=== PATIENT | female | born 1975 | race Caucasian/White ===

== ENCOUNTER 2016-12-31 10:00 | Inpatient (IN) | payer OTHER ==
[2017-01-03] MEDS ORDERED: OXYTOCIN IN LR 500 ML IV ONE (10:53)
[2017-01-03] MEDS ORDERED: MINERAL OIL 25 ML BOT ONE (11:00)
[2017-01-03] MEDS ORDERED: LIDOCAINE 1% (PRES FREE) 30 ML VIAL ONE (11:00)
[2017-01-03] MEDS ORDERED: IV START KIT ONE (11:00)
[2017-01-03] MEDS ORDERED: OXYTOCIN 10 UNITS/ML VIAL ONE (11:00)
[2017-01-03] MEDS ORDERED: LIDOCAINE Viscous 2% 15 ML UDCUP ONE (11:01)
[2017-01-03] MEDS ORDERED: PUMP TUBING ONE (11:01)
[2017-01-03 11:06] LABS: HEMATOCRIT 37.6 % (37.0-47.0); HEMOGLOBIN 12.9 gm/l (12.0-16.0); MEAN CELL VOLUME 88.5 fl (81.0-99.0); MEAN CORPUSCULAR HEMOGLOBIN 30.4 pg (27.0-31.0); MEAN CORPUSCULAR HGB CONC 34.3 g/dl (33.0-37.0); RED CELL DISTRIBUTION WIDTH 13.3 % (11.5-14.5)
[2017-01-03] MEDS: MISOPROSTOL 25 MCG TABLET VG SCH ×2 (11:23→23:01)
[2017-01-03 12:45] VITALS: BMI 47.1
[2017-01-03] MEDS ORDERED: LACTATED RINGERS 2,000 ML ONE (15:56)
[2017-01-03] MEDS: OXYTOCIN IN LR 500 ML IV PRN ×3 (16:02→22:50)
[2017-01-03] MEDS: LACTATED RINGERS 1,000 ML IV SCH ×2 (16:03→20:07)
[2017-01-04] MEDS: LACTATED RINGERS 1,000 ML IV SCH ×2 (01:08→01:44)
[2017-01-04] MEDS ORDERED: EPIDURAL PUMP SET ONE (01:20)
[2017-01-04] MEDS ORDERED: FENTANYL/ROPIVACAINE EPIDURAL 250 ML EP ONE (01:20)
[2017-01-04] MEDS ORDERED: EPIDURAL PROCEDURE TRAY ONE (01:29)
[2017-01-04] MEDS ORDERED: BUPIVACAINE 0.25% (PRES FREE) 30 ML VIAL ONE (01:29)
--- NOTE | 2017-01-04 02:42 | PCMDEL ---
Delivery Note - Delivery Delivery (Date): 01/04/17 Delivery (Time): 02:20 Gender: Male Presentation: Cephalic Position: OA Umbilical Cord: 3 Vessel, True Knot Delayed Cord Clamping:: < 1 min Placenta:: spontaneous and complete EBL:: 300ml Perineum:: 2nd degree tear Suture:: 2-0 chromic Anesthesia/Meds:: epidural
[2017-01-04] MEDS ORDERED: HYDROCODONE/ACETAMINOPHEN 5/325MG TABLET PO PRN (02:48)
[2017-01-04] MEDS ORDERED: BENZOCAINE/MENTHOL 60 APPLIC/BOT TP PRN (02:48)
[2017-01-04] MEDS ORDERED: MEASLES,MUMPS&RUBELLA VACCINE 0.5 ML VIAL SUB-Q V ONE (02:48)
[2017-01-04] MEDS ORDERED: DIPHTH,PERTUSS(ACELL),TET VAC 0.5 ML VIAL IM V ONE (02:48)
[2017-01-04] MEDS ORDERED: MAGNESIUM HYDROXIDE 30 ML UDCUP PO PRN (02:48)
[2017-01-04] MEDS ORDERED: LANOLIN 50 APPLIC/7G TUBE TP PRN (02:48)
[2017-01-04] MEDS: DOCUSATE SODIUM 100 MG CAPSULE PO PRN (07:45)
[2017-01-04] MEDS: LEVOTHYROXINE SODIUM 100 MCG TABLET PO SCH (07:46)
--- NOTE | 2017-01-04 10:09 | PDOC44 ---
- Subjective Reports Pain Tolerable, Reports , Reports Lochia Light, Reports Tolerating Regular Diet - Objective Temp Pulse Resp BP Pulse Ox 97.2 F 78 18 134/67 01/04/17 07:15 01/04/17 07:15 01/04/17 07:15 01/04/17 07:15 Lab Results 01/03/17 10:35 WBC 9.3 RBC 4.25 Hgb 12.9 Hct 37.6 Plt Count 154 Current Medications Generic Name Dose Route Start Last Admin Trade Name Freq PRN Reason Stop Dose Admin Acetaminophen/Hydrocodone Bitart 1 - 2 tab 01/04/17 02:48 [place] 5/325 PO Q4H PRN Pain (Moderate) Benzocaine/Menthol 1 applic 01/04/17 02:48 Dermoplast TP PRN PRN Patient Comfort Docusate Sodium 100 mg 01/04/17 02:48 01/04/17 07:45 Colace PO 100 mg DAILY PRN Administration Comfort Emollient Ointment 1 applic 01/04/17 02:48 [id number] TP PRN PRN sore nipples Ibuprofen 800 mg 01/04/17 02:48 Motrin PO Q6H PRN Pain (Mild) Levothyroxine Sodium 100 mcg 01/04/17 07:30 01/04/17 07:46 Levothroid PO 100 mcg QAMAC JULIAN Administration Magnesium Hydroxide 30 ml 01/04/17 02:48 Milk Of Magnesia PO BEDTIME PRN Constipation Sodium Chloride 10 ml 01/04/17 02:48 Normal Saline 10ml Flush IV PRN PRN IV Flush - Physical Exam General: Afebrile Psych/Mental Status: Mood/Affect Appropriate Breast: Soft Fundus: Firm Abdomen: Normal Bowel Sounds Genitourinary: Normal Female Genitalia Disposition: Stable, Anticipate DC Home Tomorrow
[2017-01-04] MEDS: IBUPROFEN 800 MG TABLET PO PRN ×2 (10:44→20:30)
[2017-01-05] MEDS: IBUPROFEN 800 MG TABLET PO PRN ×2 (06:08→14:04)
[2017-01-05 06:53] LABS: HEMATOCRIT 35.6 % (37.0-47.0); HEMOGLOBIN 11.5 gm/l (12.0-16.0)
[2017-01-05] MEDS: LEVOTHYROXINE SODIUM 100 MCG TABLET PO SCH (08:48)
[2017-01-05] MEDS: DOCUSATE SODIUM 100 MG CAPSULE PO PRN (09:08)
[2017-01-05 14:10] VITALS: BP 136/77
== END 2017-01-05 15:55 | disposition home or self-care (01) | DRG 775 ==
LOC: EDSTATUS 10:00 → FBC 01-03 10:01
PROVIDERS: ADMIT Obstetrics & Gynecology; ATTEND Obstetrics & Gynecology
PROC: 10E0XZZ Delivery of Products of Conception, External Approach (ICD-10-PCS; principal; 2017-01-04)
DX: O70.1 Second degree perineal laceration during delivery (principal); O09.523 Supervision of elderly multigravida, third trimester; Z3A.40 40 weeks gestation of pregnancy; Z37.0 Single live birth

== ENCOUNTER 2017-01-07 14:04 | Outpatient (CLI) | payer OTHER | END 2017-01-07 14:05 | disposition home or self-care (01) | LOC: BABIESSH 14:04 | PROVIDERS: ATTEND Obstetrics & Gynecology | DX: Z39.1 Encounter for care and examination of lactating mother (principal) ==

== ENCOUNTER 2017-01-24 23:18 | Emergency (ER) | payer OTHER ==
[2017-01-24] MEDS ORDERED: IOPAMIDOL 370 (76%) 100 ML VIAL IV ONE (23:19)
[2017-01-25 00:09] LABS: ABSOLUTE NEUTROPHIL COUNT 3.5 K/mm3 (1.8-7.7); BASO % 0.3 % (0.2-1.0); EOS # 0.1 (0.0-0.5); EOS % 1.8 % (0.9-2.9); HEMATOCRIT 42.2 % (37.0-47.0); HEMOGLOBIN 13.5 gm/l (12.0-16.0); IMM NEUT% 0.2 % (0-1); LYMPH # 2.5 (1.0-4.8); LYMPH % 38.8 % (15-45); MEAN CELL VOLUME 91.7 fl (81.0-99.0); MEAN CORPUSCULAR HEMOGLOBIN 29.3 pg (27.0-31.0); MEAN PLATELET VOLUME 10.8 fl (7.4-10.4); MONO # 0.3 (0.0-0.8); MONO % 4.8 % (4-12); NEUT % 54.1 % (43-75); PLATELET COUNT 178 K/mm3 (130-400); RED CELL DISTRIBUTION WIDTH 12.4 % (11.5-14.5)
[2017-01-25 00:31] LABS: ALB/GLOB RATIO 1.4 (>1.0); ALBUMIN 3.7 gm/dL (3.5-5.7); CALCIUM 9.1 mg/dL (8.6-10.3)
[2017-01-25] MEDS ORDERED: KETOROLAC TROMETHAMINE 15 MG/ML VIAL ONE (02:54)
--- NOTE | 2017-01-25 08:32 | CT ---
CHEST CTA HISTORY: chest pain.. TECHNIQUE: Following the administration of 80 mL Isovue-370 intravenous contrast, contiguous axial images were acquired from the thoracic inlet to the diaphragmatic hiatus for CT pulmonary angiography. Three-dimensional imaging was not performed. FINDINGS: PULMONARY ARTERIAL TREE: Technically adequate enhancement: No dominant filling defects. THORACIC AORTA: Normal caliber. No evidence of dissection. LUNGS: 7 mm right upper lobe nodule, image 19. KRYSTAL AND MEDIASTINUM: No abnormally enlarged lymph nodes. AXILLAE: No grossly enlarged lymph nodes. UPPER ABDOMEN: Small hiatal hernia with evidence of left for scapular gastric band placement. Minor wall thickening of the distal esophagus suggested. No gross upper abdominal mass effect. Evidence of cholelithiasis. OSSEOUS STRUCTURES: No grossly destructive lesions. IMPRESSION: 1. No CTA evidence of proximal order pulmonary embolus. No gross airspace disease. 2. Findings of prior laparoscopic gastric band placement with small hiatal hernia and distal esophageal wall thickening, esophagitis is possible. 3. Evidence of cholelithiasis. 4. 7 mm nodule of the right upper lobe, recommend follow-up in 12 months. Recommend follow-up in 6 months if the patient has a smoking history or a personal history of neoplasm. Preliminary report relayed to the Emergency Medicine medical service by Dr. San on 01/25/2017 at 0119 hours.
== END 2017-01-25 03:49 | disposition home or self-care (01) ==
LOC: ED 23:18
DX: R07.9 Chest pain, unspecified (principal); R06.02 Shortness of breath; R11.0 Nausea; E03.9 Hypothyroidism, unspecified
CPT/HCPCS: 85025; 80053; 84484 ×2; 71275; 99284 ×2; 93005; J1885; Q9967